=== PATIENT | female | born 1985 | race Caucasian/White ===

== ENCOUNTER 2017-06-06 15:35 | Emergency (ER) | payer SELFPAY ==
[~2017-06-06] VITALS: Ht 154.9 cm; Wt 62.0 kg
[2017-06-06] MEDS ORDERED: FLUORESCEIN SODIUM 1MG/STRIP OP ONE (16:00)
[2017-06-06] MEDS ORDERED: TETRACAINE 0.5% OPHTH DROPS 4ML OP ONE (16:00)
[2017-06-06 19:00] VITALS: BP 128/76
== END 2017-06-06 19:12 | disposition home or self-care (01) ==
LOC: ER 15:35
DX: H18.823 Corneal disorder due to contact lens, bilateral (principal); F17.210 Nicotine dependence, cigarettes, uncomplicated; F14.10 Cocaine abuse, uncomplicated
CPT/HCPCS: 99283